=== PATIENT | male | born 1990 | race Caucasian/White ===

== ENCOUNTER 2019-01-03 17:43 | Emergency (ER) | payer OTHER ==
[~2019-01-03] VITALS: Ht 167.6 cm; Wt 77.1 kg
[2019-01-03] MEDS ORDERED: ATORVASTATIN CA10 MG (17:49)
== END 2019-01-03 18:48 | disposition home or self-care (01) ==
LOC: ER 17:43
DX: S63.276A Dislocation of unspecified interphalangeal joint of right little finger, initial encounter (principal); W21.89XA Striking against or struck by other sports equipment, initial encounter; Y93.69 Activity, other involving other sports and athletics played as a team or group; Y92.39 Other specified sports and athletic area as the place of occurrence of the external cause; Y99.8 Other external cause status